=== PATIENT | female | born 1965 | race Two or more races ===

== ENCOUNTER 2024-02-26 22:22 | Emergency (ER) | payer MEDICAID, OTHER ==
[~2024-02-26] VITALS: Ht 162.6 cm; Wt 66.2 kg
[2024-02-26 23:05] VITALS: BP 178/73; TEMP 98.4
[2024-02-26 23:14] VITALS: PULSE 102; RESP 26; O2SAT 94
== END 2024-02-27 00:26 | disposition home or self-care (01) ==
LOC: EDBD 22:22 → ER 22:22
DX: R56.9 Unspecified convulsions (principal); E11.65 Type 2 diabetes mellitus with hyperglycemia
CPT/HCPCS: 82962